=== PATIENT | male | born 1980 | race African-American/Black ===

== ENCOUNTER 2025-02-14 15:01 | Emergency (ER) | payer OTHER ==
[~2025-02-14] VITALS: Ht 182.9 cm; Wt 79.4 kg
[2025-02-14 16:02] LABS: BASOPHILS % (AUTO) 0.3 % (0.0-2.0); EOSINOPHILS # (AUTO) 0.1 K/uL (0.0-0.7); EOSINOPHILS % (AUTO) 1.2 % (0.0-6.0); HEMATOCRIT 44 % (39-51); HEMOGLOBIN 14.7 g/dL (13.5-17.5); LYMPHOCYTES # (AUTO) 1.1 K/uL (0.8-4.8); LYMPHOCYTES % (AUTO) 23.1 % (20.0-44.0); MEAN CORPUSCULAR HEMOGLOBIN 32 PG (26.0-33.0); MEAN CORPUSCULAR HGB CONC 34 g/dl (31.0-36.0); MEAN CORPUSCULAR VOLUME 97 fL (80-96); MONOCYTES # (AUTO) 0.4 K/uL (0.1-1.30); MONOCYTES % (AUTO) 9.3 % (2.0-12.0); NEUTROPHILS % (AUTO) 66.1 % (43.0-81.0); PLATELET COUNT (AUTO) 280 K/uL (150-450); RED BLOOD CELL COUNT(AUTO) 4.53 MIL/uL (4.5-6.0); RED CELL DISTRIBUTION WIDTH 12.5 % (11.5-15.0); WHITE BLOOD COUNT (AUTO) 4.6 K/uL (4.3-11.0)
[2025-02-14 16:10] LABS: CALCIUM, SERUM 9.1 mg/dL (8.5-10.1); CREATININE 1.1 mg/dL (0.6-1.3); POTASSIUM 4.3 mmol/L (3.5-5.1)
[2025-02-14] MEDS ORDERED: EMTR1TAB12 PO (16:33)
[2025-02-14 16:53] VITALS: BP 148/89; TEMP 98.6; O2SAT 99
== END 2025-02-14 16:54 | disposition home or self-care (01) ==
LOC: ER 15:08
DX: R79.89 Other specified abnormal findings of blood chemistry (principal); Z01.812 Encounter for preprocedural laboratory examination
CPT/HCPCS: 36415; 71045-TC; 80048-TC; 82550-TC; 85025-TC